=== PATIENT | female | born 1995 | race Caucasian/White ===

== ENCOUNTER 2020-03-20 17:51 | Inpatient (IN) | payer OTHER, SELFPAY ==
[2020-03-20] VITALS (18 sets, daily range): BP systolic 109–133; BP diastolic 70–105; PULSE 79–115; TEMP 36.4; BMI 30.2
[2020-03-20 18:28] LABS: Basophils Percent Auto 0.2 % (0.2-1.2); Eosinophils Percent Auto 0.4 % (0-4.4); Hematocrit 38.7 % (37.0-47.0); Hemoglobin 13.4 g/dL (12.0-15.0); Immature Granulocyte Absolute 0.08 K/mm3 (0.00-0.031); Immature Granulocyte Percent A 0.9 % (0-0.5); Lymphocytes Absolute Auto 1.48 K/mm3 (0.9-3.2); Lymphocytes Percent Auto 16.2 % (18.3-44.2); Mean Corpuscular HGB Conc 34.6 g/dl (32-36); Mean Corpuscular Volume 86.8 fl (80-100); Mean Platelet Volume 11.7 fl (7.4-10.4); Monocytes Absolute Auto 0.6 K/mm3 (0.1-0.6); Monocytes Percent Auto 6.5 % (2.6-8.5); Neutrophils Absolute Auto 6.9 K/mm3 (1.3-6.7); Neutrophils Percent Auto 75.8 % (45.5-73.1); Platelet Count Result 146 k/mm3 (150-375); Red Blood Count 4.46 M/mm3 (4.2-5.4); Red Cell Distribution Width 13.4 % (11.5-14.5); White Blood Count 9.1 K/mm3 (4.5-10.0)
[2020-03-20] MEDS: DINOPROSTONE 10 MG VAG INSERT VAGINAL (18:31)
[2020-03-20 18:41] LABS: Alanine Aminotransferase 14 U/L (4-35); Albumin Level 3.7 g/dL (3.5-5.1); Alkaline Phosphatase 176 U/L (38-126); Aspartate Amino Transferase 26 U/L (14-36); Bilirubin,Total 0.1 mg/dL (0.2-1.3); Blood Urea Nitrogen 13 mg/dL (7-17); Calcium 9.2 mg/dL (8.4-10.2); Carbon Dioxide 18 mmol/L (22-30); Chloride 106 mmol/L (98-107); Estimated Glomerular Filt Rate > 60; Glucose 113 mg/dL (65-105); Potassium 3.6 mmol/L (3.4-5.0); Sodium 134 mmol/L (137-145)
--- NOTE | 2020-03-20 19:24 | LDADM ---
This patient, Shayna Durham, was admitted to Labor/Delivery/Recovery 108 on 03/20/20 at 17:51. Plans for labor, pain management and were discussed with patient. Patient/family oriented to hospital policies and general routines including ID bracelet, bed and alarms, visiting hours, pain management, procedures, bathroom and other care routines, personal items, smoking policy, room service/diet and guest tray routines, infant security routines, and visiting hours. Patient/Family are encouraged to report perceived risks to care and to ask questions if they do not understand what they are told or what they should do. See OBIX for further documentation.
[2020-03-20] MEDS: ZOLPIDEM TARTRATE 5 MG TABLET PO (22:36)
[2020-03-21] VITALS (99 sets, daily range): BP systolic 83–153; BP diastolic 43–110; PULSE 70–133; TEMP 36.4–37.7; O2SAT 96–100
[2020-03-21] MEDS: MAGNESIUM HYDROXIDE SUSP 30 ML UDC PO (00:04)
[2020-03-21] MEDS: LACTATED RINGERS 1,000 ML 999 ML IV CONT ×4 (05:17→17:05)
--- NOTE | 2020-03-21 06:19 | WPDANESEPPF ---
Anes - Initial Pre Proc Eval Procedure: labor epidural Date/Time: 03/21/20 06:19 Surgeon: Hugo Deleon MD Pre Op Diagnosis: labor pain Pre Op Diagnosis: Induction of Labor Patient Data Age: 24 Gender: F Height: 1.57 m Weight: 75 kg Last Vital Signs Temp 36.8 C 03/21/20 06:12 Pulse 93 03/21/20 06:18 BP 121/74 03/21/20 06:18 Pulse Ox 100 03/21/20 06:15 Allergies Allergy/AdvReac Type Severity Reaction Status Date / Time No Known Allergies Allergy Verified 02/29/20 13:49 Home Medications Medication Instructions Recorded Confirmed Type PNV cmb#95-ferrous fumarate-FA 1 tablet PO DAILY 02/29/20 02/29/20 History [] escitalopram oxalate [Lexapro] 20 mg PO DAILY 02/29/20 02/29/20 History Laboratory Tests 03/20/20 03/20/20 03/20/20 18:19 18:19 18:19 WBC 9.1 K/mm3 K/mm3 (4.5-10.0) RBC 4.46 M/mm3 M/mm3 (4.2-5.4) Hgb 13.4 g/dL g/dL (12.0-15.0) Hct 38.7 % % (37.0-47.0) MCV 86.8 fl fl (80-100) MCH 30.0 pg pg (26-34) MCHC 34.6 g/dl g/dl (32-36) RDW 13.4 % % (11.5-14.5) Plt Count 146 k/mm3 L k/mm3 (150-375) MPV 11.7 fl H fl (7.4-10.4) Immature Gran % (Auto) 0.9 % H % (0-0.5) Neut % (Auto) 75.8 % H % (45.5-73.1) Lymph % (Auto) 16.2 % L % (18.3-44.2) [place] % (Auto) 6.5 % % (2.6-8.5) Eos % (Auto) 0.4 % % (0-4.4) Baso % (Auto) 0.2 % % (0.2-1.2) Lymph # (Auto) 1.48 K/mm3 K/mm3 (0.9-3.2) [place] # (Auto) 0.6 K/mm3 K/mm3 (0.1-0.6) Eos # (Auto) 0.0 K/mm3 K/mm3 (0-0.3) Baso # (Auto) 0.0 K/mm3 K/mm3 (0.0-0.1) Abs Immat Gran (auto) 0.08 K/mm3 H K/mm3 (0.00-0.031) Absolute Neuts (auto) 6.9 K/mm3 H K/mm3 (1.3-6.7) Absolute Nucleated RBC 0.0 K/mm3 K/mm3 (0.0-0.012) Nucleated RBC % 0.0 % % (0.0-0.2) Sodium Potassium Chloride Carbon Dioxide BUN Creatinine Estim Creat Clear Calc Estimated GFR Glucose Calcium Total Bilirubin AST ALT Alkaline Phosphatase Total Protein Albumin RPR Pending Blood Type O Positive Antibody Screen Negative 03/20/20 18:19 WBC RBC Hgb Hct MCV MCH MCHC RDW Plt Count MPV Immature Gran % (Auto) Neut % (Auto) Lymph % (Auto) [place] % (Auto) Eos % (Auto) Baso % (Auto) Lymph # (Auto) [place] # (Auto) Eos # (Auto) Baso # (Auto) Abs Immat Gran (auto) Absolute Neuts (auto) Absolute Nucleated RBC Nucleated RBC % Sodium 134 mmol/L L mmol/L (137-145) Potassium 3.6 mmol/L mmol/L (3.4-5.0) Chloride 106 mmol/L mmol/L (98-107) Carbon Dioxide 18 mmol/L L mmol/L (22-30) BUN 13 mg/dL mg/dL (7-17) Creatinine 0.70 mg/dL mg/dL (0.7-1.0) Estim Creat Clear Calc Not Reportable Estimated GFR > 60 (59 - ) Glucose 113 mg/dL H mg/dL (65-105) Calcium 9.2 mg/dL mg/dL (8.4-10.2) Total Bilirubin 0.1 mg/dL L mg/dL (0.2-1.3) AST 26 U/L U/L (14-36) ALT 14 U/L U/L (4-35) Alkaline Phosphatase 176 U/L H U/L (38-126) Total Protein 7.0 g/dL g/dL (6.3-8.2) Albumin 3.7 g/dL g/dL (3.5-5.1) RPR Blood Type Antibody Screen Patient hx anesthesia problems: none Family hx anesthesia problems: none [facility] Past Medical History Medical History (Updated 03/21/20 @ 06:20 by Bill Che CRNA) Anxiety GERD (gastroesophageal reflux disease) Family History Family History Father Hyperte
--- NOTE | 2020-03-21 06:46 | P.PNOB_ITS ---
OB - PN: Subj Subjective Date/time seen: 03/21/20 06:46 cx 8 cm/100/-2 arom mec stained fhts reassuring epidural working OB - PN: Obj Data Labs CBC & Chem 7: 03/20/20 18:19 03/20/20 18:19 Labs: Laboratory Results - last 24 hr 03/20/20 03/20/20 03/20/20 18:19 18:19 18:19 WBC 9.1 RBC 4.46 Hgb 13.4 Hct 38.7 MCV 86.8 MCH 30.0 MCHC 34.6 RDW 13.4 Plt Count 146 L MPV 11.7 H Immature Gran % (Auto) 0.9 H Neut % (Auto) 75.8 H Lymph % (Auto) 16.2 L [place] % (Auto) 6.5 Eos % (Auto) 0.4 Baso % (Auto) 0.2 Lymph # (Auto) 1.48 [place] # (Auto) 0.6 Eos # (Auto) 0.0 Baso # (Auto) 0.0 Abs Immat Gran (auto) 0.08 H Absolute Neuts (auto) 6.9 H Absolute Nucleated RBC 0.0 Nucleated RBC % 0.0 Sodium 134 L Potassium 3.6 Chloride 106 Carbon Dioxide 18 L BUN 13 Creatinine 0.70 Estim Creat Clear Calc Not Reportable Estimated GFR > 60 Glucose 113 H Calcium 9.2 Total Bilirubin 0.1 L AST 26 ALT 14 Alkaline Phosphatase 176 H Total Protein 7.0 Albumin 3.7 Blood Type O Positive Antibody Screen Negative OB - PN A/P Time Spent With Patient Time: Total time spent is greater than 50% in coordination of care (as documented) at patient's floor/unit and/or counseling patient:
--- NOTE | 2020-03-21 06:47 | PM.IMHP ---
H&P: HPI History of Present Illness Chief complaint: Induction of Labor Narrative: Shayna Durham is a 24 year old female 2 para 0010 whose last menstrual period was 06/10/2019, EDC is 03/24/2020, presents at 39 and half weeks gestation for induction of labor. She has a 7 week ultrasound confirming dates. has been uncomplicated. Risks and benefits of induction Review of Systems Review of Systems: All systems reviewed & are unremarkable except as noted in HPI and below PMFSH Past Medical History Medical History Anxiety GERD (gastroesophageal reflux disease) Family History Family History Father Hypertension Grandparent Hypertension Sibling Melanoma Mother Autoimmune disorder Social History Social History Smoking status: Never smoker Substance use: never Spiritual care concerns: No Meds Home Medications and Allergies Home Medications Medication Instructions Recorded Confirmed Type PNV cmb#95-ferrous fumarate-FA 1 tablet PO DAILY 02/29/20 02/29/20 History [] escitalopram oxalate [Lexapro] 20 mg PO DAILY 02/29/20 02/29/20 History Allergies Allergy/AdvReac Type Severity Reaction Status Date / Time No Known Allergies Allergy Verified 02/29/20 13:49 Vital Signs Vital Signs - 24 hr 03/20/20 18:04 03/20/20 18:14 03/20/20 19:21 Temperature 97.6 F Pulse Rate 115 H 104 H Blood Pressure 131/91 H 126/84 Pulse Oximetry 03/20/20 19:29 03/20/20 19:45 03/20/20 20:00 Temperature Pulse Rate 112 H 100 104 H Blood Pressure 125/89 126/88 125/86 Pulse Oximetry 03/20/20 20:15 03/20/20 20:30 03/20/20 20:45 Temperature Pulse Rate 92 94 88 Blood Pressure 130/89 128/71 126/81 Pulse Oximetry 03/20/20 21:00 03/20/20 21:15 03/20/20 21:30 Temperature Pulse Rate 79 99 88 Blood Pressure 129/89 122/70 129/89 Pulse Oximetry 03/20/20 21:45 03/20/20 22:05 03/20/20 22:06 Temperature 97.6 F Pulse Rate 92 86 Blood Pressure 130/105 H 119/77 Pulse Oximetry 03/20/20 22:15 03/20/20 22:29 03/20/20 23:00 Temperature Pulse Rate 84 82 87 Blood Pressure 109/76 120/93 H 133/85 Pulse Oximetry 03/21/20 00:05 03/21/20 00:08 03/21/20 02:00 Temperature 98 F Pulse Rate 105 H 96 Blood Pressure 116/73 110/68 Pulse Oximetry 03/21/20 03:59 03/21/20 06:00 03/21/20 06:05 Temperature Pulse Rate 83 99 Blood Pressure 130/100 H 143/83 H Pulse Oximetry 99 03/21/20 06:06 03/21/20 06:07 03/21/20 06:08 Temperature Pulse Rate 105 H 107 H 112 H Blood Pressure 142/97 H 134/90 143/92 H Pulse Oximetry 03/21/20 06:10 03/21/20 06:12 03/21/20 06:14 Temperature 98.3 F Pulse Rate 107 H 114 H 108 H Blood Pressure 134/82 139/79 125/74 Pulse Oximetry 100 03/21/20 06:15 03/21/20 06:16 03/21/20 06:18 Temperature Pulse Rate 101 H 93 Blood Pressure 124/78 121/74 Pulse Oximetry 100 03/21/20 06:20 03/21/20 06:22 03/21/20 06:24 Temperature Pulse Rate 101 H 104 H 107 H Blood Pressure 120/73 123/77 122/74 Pulse Oximetry 100 03/21/20 06:25 03/21/20 06:26 03/21/20 06:27 Temperature Pulse Rate 103 H 102 H Blood Pressure 114/64 118/69 Pulse Oximetry 100 03/21/20 06:30 03/21/20 06:32 03/21/20 06:34 Temperature Pulse Rate 98 103 H 103 H Blood Pressure 121/81 123/84 129/79 Pulse Oximetry 100 03/21/20 06:35 03/21/20 06:38 03/21/20 06:39 Temperature Pulse Rate 109 H 106 H 117 H Blood Pressure 124/81 105/67 116/78 Pulse Oximetry 100 03/21/20 06:40 03/21/20 06:42 03/21/20 06:44 Temperature Pulse Rate 133 H 121 H Blood Pressure 132/79 114/73 Pulse Oximetry 100 03/21/20 06:45 Temperature Pulse Rate 122 H Blood Pressure 113/67 Pulse Oximetry 100 Exam Const: Gen
[2020-03-21] MEDS: TERBUTALINE SULFATE 1 MG/ML VIAL 0.25 MG SUB-Q (07:00)
--- NOTE | 2020-03-21 07:03 | PM.OBPNVD ---
OB - PN: Subj Subjective Date/time seen: 03/21/20 07:03 sudden onset bradycardia responded to fse/o2/fluid/terb cx 9 cm fhts ok now observe closely OB - PN: Obj Data Labs CBC & Chem 7: 03/20/20 18:19 03/20/20 18:19 Labs: Laboratory Results - last 24 hr 03/20/20 03/20/20 03/20/20 18:19 18:19 18:19 WBC 9.1 RBC 4.46 Hgb 13.4 Hct 38.7 MCV 86.8 MCH 30.0 MCHC 34.6 RDW 13.4 Plt Count 146 L MPV 11.7 H Immature Gran % (Auto) 0.9 H Neut % (Auto) 75.8 H Lymph % (Auto) 16.2 L [place] % (Auto) 6.5 Eos % (Auto) 0.4 Baso % (Auto) 0.2 Lymph # (Auto) 1.48 [place] # (Auto) 0.6 Eos # (Auto) 0.0 Baso # (Auto) 0.0 Abs Immat Gran (auto) 0.08 H Absolute Neuts (auto) 6.9 H Absolute Nucleated RBC 0.0 Nucleated RBC % 0.0 Sodium 134 L Potassium 3.6 Chloride 106 Carbon Dioxide 18 L BUN 13 Creatinine 0.70 Estim Creat Clear Calc Not Reportable Estimated GFR > 60 Glucose 113 H Calcium 9.2 Total Bilirubin 0.1 L AST 26 ALT 14 Alkaline Phosphatase 176 H Total Protein 7.0 Albumin 3.7 Blood Type O Positive Antibody Screen Negative OB - PN A/P Time Spent With Patient Time: Total time spent is greater than 50% in coordination of care (as documented) at patient's floor/unit and/or counseling patient:
[2020-03-21] MEDS: OXYTOCIN 30 UNITS/NS 500 ML 30 UNITS/500 ML BAG IV CONT (08:47)
[2020-03-21 09:47] LABS: Rapid Plasma Reagin Non-Reactive (NonReactive)
--- NOTE | 2020-03-21 10:54 | P.PNOB_ITS ---
OB - PN: Subj Subjective Date/time seen: 03/21/20 10:54 cx 9cm by rn exam/-1 station iu in [facility] reassuring OB - PN: Obj Data Labs CBC & Chem 7: 03/20/20 18:19 03/20/20 18:19 Labs: Laboratory Results - last 24 hr 03/20/20 03/20/20 03/20/20 18:19 18:19 18:19 WBC 9.1 RBC 4.46 Hgb 13.4 Hct 38.7 MCV 86.8 MCH 30.0 MCHC 34.6 RDW 13.4 Plt Count 146 L MPV 11.7 H Immature Gran % (Auto) 0.9 H Neut % (Auto) 75.8 H Lymph % (Auto) 16.2 L [place] % (Auto) 6.5 Eos % (Auto) 0.4 Baso % (Auto) 0.2 Lymph # (Auto) 1.48 [place] # (Auto) 0.6 Eos # (Auto) 0.0 Baso # (Auto) 0.0 Abs Immat Gran (auto) 0.08 H Absolute Neuts (auto) 6.9 H Absolute Nucleated RBC 0.0 Nucleated RBC % 0.0 Sodium Potassium Chloride Carbon Dioxide BUN Creatinine Estim Creat Clear Calc Estimated GFR Glucose Calcium Total Bilirubin AST ALT Alkaline Phosphatase Total Protein Albumin RPR Non-reactive Blood Type O Positive Antibody Screen Negative 03/20/20 18:19 WBC RBC Hgb Hct MCV MCH MCHC RDW Plt Count MPV Immature Gran % (Auto) Neut % (Auto) Lymph % (Auto) [place] % (Auto) Eos % (Auto) Baso % (Auto) Lymph # (Auto) [place] # (Auto) Eos # (Auto) Baso # (Auto) Abs Immat Gran (auto) Absolute Neuts (auto) Absolute Nucleated RBC Nucleated RBC % Sodium 134 L Potassium 3.6 Chloride 106 Carbon Dioxide 18 L BUN 13 Creatinine 0.70 Estim Creat Clear Calc Not Reportable Estimated GFR > 60 Glucose 113 H Calcium 9.2 Total Bilirubin 0.1 L AST 26 ALT 14 Alkaline Phosphatase 176 H Total Protein 7.0 Albumin 3.7 RPR Blood Type Antibody Screen OB - PN A/P Time Spent With Patient Time: Total time spent is greater than 50% in coordination of care (as documented) at patient's floor/unit and/or counseling patient:
--- NOTE | 2020-03-21 18:19 | PM.OBPRVD ---
OB - Delivery Note Procedure Delivery date: 03/21/20 Procedure: mil Intrapartal events: None Induction method: AROM Delivery augmentation: pitocin Delivery monitor: external FHT Route of delivery: Episiotomy description: None Laceration description: Perineal - 2nd Degree Delivery repair: vicryl Specimen: No Estimated blood loss (mL): 250 Anesthesia type: Epidural Disposition: floor Baby Date of : 03/21/20 Time of : 18:00 Weeks of gestation at delivery: 39 Infant gender: Male Weight (pounds): 8 Weight (ounces): 0 presentation: vertex position: Right Occiput Anterior Placenta delivery description: Spontaneous cord vessel description: 3 Vessels score one minute: 5 score five minutes: 8
[2020-03-21] MEDS: OXYTOCIN 30 UNITS/NS 500 ML 30 UNITS/500 ML BAG 125 UNITS IV CONT (18:36)
[2020-03-21] MEDS: IBUPROFEN 600 MG TABLET PO (19:02)
[2020-03-21] MEDS: BENZOCAINE 20% AER SPR (*SP) 56 GM CAN 1 SPRAY TOPICAL (19:02)
[2020-03-21] MEDS: WITCH HAZEL 40 PADS 1 PAD TOPICAL (19:03)
[2020-03-21] MEDS: ACETAMINOPHEN 325 MG TABLET 650 MG PO (19:20)
[2020-03-22] MEDS: IBUPROFEN 600 MG TABLET PO (01:58)
[2020-03-22 04:57] LABS: Hematocrit 30.5 % (37.0-47.0); Hemoglobin 10.5 g/dL (12.0-15.0)
--- NOTE | 2020-03-22 06:48 | PM.OBPNVD ---
OB - PN: Subj Subjective Date/time seen: 03/22/20 06:48 Patient comments: no complaints and pain well controlled baby status: doing well and nursing well OB - PN: Obj Data Labs CBC & Chem 7: 03/22/20 04:42 03/20/20 18:19 Labs: Laboratory Results - last 24 hr 03/20/20 03/22/20 18:19 04:42 Hgb 10.5 L Hct 30.5 L RPR Non-reactive OB - PN A/P Plan day: 1 Plan: routine care Time Spent With Patient Time: Total time spent is greater than 50% in coordination of care (as documented) at patient's floor/unit and/or counseling patient: Time with patient: less than 15 minutes Review of Systems Review of Systems: All systems reviewed & are unremarkable except as noted in HPI and below Exam Const: General: no acute distress Eyes: General: appearance normal, both eyes and all related structures Neck: Neck: supple and no JVD Thyroid: thyroid normal Resp: Effort & Inspection: normal respiratory effort Auscultation: clear to auscultation bilaterally Cardio: Rate: regular rate Rhythm: regular rhythm GI: Inspection: non-distended GI Palp: Yes Soft to palpation, No Tenderness to palpation present (GI) and No Guarding due to palpation present (GI) Auscultation: normal bowel sounds : General: Yes bladder normal to palpation External Female Exam: normal external appearance Speculum Exam - Vagina: normal vaginal discharge and No vaginal bleeding Speculum Exam - Cervix: nontender Bimanual exam- vagina & uterus: bladder normal to palpation and No Cervical tenderness present OB/external & speculum: No vaginal bleeding Skin: General skin exam: no rashes or lesions noted Extrem: General: normal to inspection and no edema Psych: Mental Status: mental status grossly normal Affect: normal affect
--- NOTE | 2020-03-22 06:48 | PM.DS ---
DS: Admitting Diagnosis Admitting Diagnosis Admitting Diagnosis: term iup DS: Summary Time Spent with Patient Time attestation: Total time spent providing and/or coordinating discharge services: Exam Const: General: no acute distress Eyes: General: appearance normal, both eyes and all related structures Neck: Neck: supple and no JVD Thyroid: thyroid normal Resp: Effort & Inspection: normal respiratory effort Auscultation: clear to auscultation bilaterally Cardio: Rate: regular rate Rhythm: regular rhythm GI: Inspection: non-distended GI Palp: Yes Soft to palpation, No Tenderness to palpation present (GI) and No Guarding due to palpation present (GI) Auscultation: normal bowel sounds : General: Yes bladder normal to palpation External Female Exam: normal external appearance Speculum Exam - Vagina: normal vaginal discharge and No vaginal bleeding Speculum Exam - Cervix: nontender Bimanual exam- vagina & uterus: bladder normal to palpation and No Cervical tenderness present OB/external & speculum: No vaginal bleeding Skin: General skin exam: no rashes or lesions noted Extrem: General: normal to inspection and no edema Psych: Mental Status: mental status grossly normal Affect: normal affect DS: Data Data Completed and Pending Labs on day of discharge: Labs from last 24 hours 03/22/20 03/20/20 04:42 18:19 Hgb 10.5 L Hct 30.5 L RPR Non-reactive Discharge Plan Discharge Attending physician on discharge: Hugo Deleon Discharging Clinician: Hugo Deleon Patient Disposition: Home, Self-Care Activity: may shower, no straining and pelvic rest Diet: heart healthy Patient Instructions: Antibiotic Form Stand Alone Forms: General Discharge Information Follow-up/Referrals: Hugo Deleon MD [Physician] - Discharge Medications: Continued escitalopram oxalate [Lexapro] 20 mg Tablet 20 mg PO DAILY RF: 0 PNV cmb#95-ferrous fumarate-FA [] 28 mg iron- 800 mcg Tablet 1 tablet PO DAILY RF: 0 Date of admission: 03/20/20 17:51 Primary Care Provider: Ramiro Fry Admitting Provider: Hugo Deleon Attending physician on admission: Hugo Deleon
[2020-03-22 08:30] VITALS: RESP 18; TEMP 35.8
[2020-03-22 08:33] VITALS: BP 102/64; PULSE 77
--- NOTE | 2020-03-22 15:30 | PC.NURSE ---
Patient transferred to post room #282 ambulatory. Support person present. Oriented to unit, room, information board, rooming in, admission packet and security measures. Patient verbalizes understanding.
[2020-03-22 20:00] VITALS: BP 134/90; PULSE 88; RESP 18; TEMP 37.1; O2SAT 100
--- NOTE | 2020-03-23 06:46 | P.PNOB_ITS ---
OB - PN: Subj Subjective Date/time seen: 03/23/20 06:46 Patient comments: no complaints and pain well controlled baby status: doing well and nursing well OB - PN: Obj Data Labs CBC & Chem 7: 03/22/20 04:42 03/20/20 18:19 OB - PN A/P Time Spent With Patient Time: Total time spent is greater than 50% in coordination of care (as docume nted) at patient's floor/unit and/or counseling patient: Review of Systems Review of Systems: All systems reviewed & are unremarkable except as noted in HPI and below Exam Const: General: no acute distress Eyes: General: appearance normal, both eyes and all related structures Neck: Neck: supple and no JVD Thyroid: thyroid normal Resp: Effort & Inspection: normal respiratory effort Auscultation: clear to auscultation bilaterally Cardio: Rate: regular rate Rhythm: regular rhythm GI: Inspection: non-distended GI Palp: Yes Soft to palpation, No Tenderness to palpation present (GI) and No Guarding due to palpation present (GI) Auscultation: normal bowel sounds : General: Yes bladder normal to palpation External Female Exam: normal external appearance Speculum Exam - Vagina: normal vaginal discharge and No vaginal bleeding Speculum Exam - Cervix: nontender Bimanual exam- vagina & uterus: bladder normal to palpation and No Cervical tenderness present OB/external & speculum: No vaginal bleeding Skin: General skin exam: no rashes or lesions noted Extrem: General: normal to inspection and no edema Psych: Mental Status: mental status grossly normal Affect: normal affect
--- NOTE | 2020-03-23 07:00 | PC.NURSE ---
PT introductions made and plan of care discussed per post , pain management, breast feeding, daily care and pending discharge to home. PT verbalized understanding of such care.
[2020-03-23 08:10] VITALS: BP 127/73; PULSE 67; RESP 18; TEMP 37.1; O2SAT 99
[2020-03-23 09:30] VITALS: PULSE 67; RESP 18; O2SAT 99
--- NOTE | 2020-03-23 10:30 | PC.NURSE ---
Observed mother is able to independently latch with appropriate positioning/alignment. She denies any nipple discomfort, is feeding as required and waking infant to feed if needed. has had 8 effective feedings in the past 24 hours, and is currently meeting outcomes for weight, output, jaundice and feeding frequencies. Mother states she feels confident to continue effective at home. Reviewed transition to breast milk, signs of adequate intake, and engorgement/relief. Instructed to call ICP if intake/output less than required. Reviewed regular medications mother is taking. Information provided per Jessa. Reviewed community resources on the [facility] website and in the Mom/Baby guide. Information on outpatient services provided. Mother has no further questions at this time.
[2020-03-23] MEDS: DOCUSATE SODIUM 100 MG CAPSULE PO (10:37)
[2020-03-23] MEDS: LANOLIN (LANSINOH) 7.5 GM CREAM 1 APPLIC TOPICAL (10:37)
--- NOTE | 2020-03-23 12:00 | PC.NURSE ---
Patient viewed the discharge video Mother & Baby Care, The First Two Weeks . Patient was given the opportunity and encouraged to ask questions. Patient verbalized understanding of information shared and has been given the mother/baby guide for home reference.
--- NOTE | 2020-03-23 14:30 | PC.NURSE ---
PT received discharge instructions per protocol and verbalized understanding of such care.
[2020-03-23] MEDS: MEASLES,MUMPS,RUBELLA VACCINE 0.5 ML VIAL SUB-Q (14:33)
--- NOTE | 2020-03-23 15:19 | PC.NURSE ---
PT discharged to home ambulatory accompanied by spouse and to waiting car. Follow up appts confirmed
[2020-03-24 08:35] VITALS: BP 129/87; PULSE 84; RESP 20; TEMP 36.8; O2SAT 98
== END 2020-03-23 15:19 | disposition home or self-care (01) | DRG 807 ==
LOC: ANHLDR 03-21 13:53 → ANHNUR1 03-21 21:49 → ANHOBPP 03-21 22:23 → ANHOB2 03-22 15:43
PROVIDERS: Admitting Provider Obstetrics & Gynecology; PCP Internal Medicine; Visit Provider Obstetrics & Gynecology
DX: O13.4 Gestational [pregnancy-induced] hypertension without significant proteinuria, complicating childbirth (principal); Z37.0 Single live birth; Z3A.39 39 weeks gestation of pregnancy; O70.1 Second degree perineal laceration during delivery; O99.62 Diseases of the digestive system complicating childbirth; K21.9 Gastro-esophageal reflux disease without esophagitis; O99.284 Endocrine, nutritional and metabolic diseases complicating childbirth; E06.3 Autoimmune thyroiditis
CPT/HCPCS: 36415; 80053; 85014; 85018; 85025; 86592; 86850; 86900; 86901; 90710; A9270; J2590; J2795; J3010; J3105; J7120

== ENCOUNTER 2021-10-30 04:51 | Inpatient (IN) | payer OTHER, SELFPAY ==
[2021-10-30] VITALS (62 sets, daily range): BP systolic 88–134; BP diastolic 58–98; PULSE 59–103; RESP 12–18; TEMP 36.6–37.1; O2SAT 98–100; BMI 29.3
--- NOTE | 2021-10-30 05:17 | LDADM ---
This patient, Shayna Durham, was admitted to Labor/Delivery/Recovery 105 on 10/30/21 at 04:51. Plans for labor, pain management and were discussed with patient. Patient/family oriented to hospital policies and general routines including ID bracelet, bed and alarms, visiting hours, pain management, procedures, bathroom and other care routines, personal items, smoking policy, room service/diet and guest tray routines, infant security routines, and visiting hours. Patient/Family are encouraged to report perceived risks to care and to ask questions if they do not understand what they are told or what they should do. See OBIX for further documentation.
[2021-10-30 05:28] LABS: Basophils Percent Auto 0.3 % (0.2-1.2); Eosinophils Absolute Auto 0.1 K/mm3 (0-0.3); Eosinophils Percent Auto 0.9 % (0-4.4); Hematocrit 38.6 % (37.0-47.0); Immature Granulocyte Absolute 0.07 K/mm3 (0.00-0.031); Immature Granulocyte Percent A 0.7 % (0-0.5); Lymphocytes Absolute Auto 3.44 K/mm3 (0.9-3.2); Mean Corpuscular HGB Conc 33.7 g/dl (32-36); Mean Corpuscular Hemoglobin 29.1 pg (26-34); Mean Corpuscular Volume 86.5 fl (80-100); Mean Platelet Volume 10.8 fl (7.4-10.4); Monocytes Absolute Auto 0.7 K/mm3 (0.1-0.6); Monocytes Percent Auto 7.2 % (2.6-8.5); Neutrophils Absolute Auto 5.5 K/mm3 (1.3-6.7); Neutrophils Percent Auto 55.9 % (45.5-73.1); Platelet Count Result 173 k/mm3 (150-375); Red Blood Count 4.46 M/mm3 (4.2-5.4); Red Cell Distribution Width 13.2 % (11.5-14.5); White Blood Count 9.8 K/mm3 (4.5-10.0)
[2021-10-30] MEDS: LACTATED RINGERS 1,000 ML 125 ML IV CONT ×2 (05:32→08:05)
[2021-10-30] MEDS: OXYTOCIN 30 UNITS/NS 500 ML 30 UNITS/500 ML BAG IV CONT (05:33)
[2021-10-30 05:52] LABS: Alanine Aminotransferase 11 U/L (4-35); Albumin Level 3.7 g/dL (3.5-5.1); Alkaline Phosphatase 141 U/L (38-126); Anion Gap 4 mmol/L (8-16); Aspartate Amino Transferase 25 U/L (14-36); Bilirubin,Total 0.3 mg/dL (0.2-1.3); Blood Urea Nitrogen 13 mg/dL (7-17); Calcium 9.5 mg/dL (8.4-10.2); Carbon Dioxide 21 mmol/L (22-30); Chloride 107 mmol/L (98-107); Estimated CRCL calculation 113 ml/min; Estimated Glomerular Filt Rate > 60; Glucose 89 mg/dL (65-110); Sodium 132 mmol/L (137-145)
--- NOTE | 2021-10-30 07:24 | PM.IMHP ---
H&P: HPI History of Present Illness Date/Time: 10/30/21 07:24 This is a 26-year-old 2 para 1 whose last menstrual period was 01/11/2021, EDC is 11/08/2021, confirmed by 7 week ultrasound presents at term for induction of labor. Cervix is favorable and her L blood pressures have been elevated over the last 3 visits. PIH labs were drawn and are normal Chief Complaint: 38 and 5 7th weeks gestation with elevated blood pressures Review of Systems Review of Systems: All systems reviewed & are unremarkable except as noted in HPI and below PMFSH Past Medical History Medical History Anxiety Anxiety BMI 26.0-26.9,adult Encounter for preventive health examination GERD (gastroesophageal reflux disease) On care home drug therapy Family History Family History Father Hypertension Grandparent Hypertension Sibling Melanoma Mother Autoimmune disorder Social History Social History Smoking status: Never smoker Second hand tobacco smoke exposure: No Substance use: never Gender identity (if verbalized by the patient): Female Spiritual care concerns: No Meds Home Medications and Allergies Home Medications Medication Instructions Recorded Confirmed Type multivitamin 1 tablet PO DAILY 11/29/20 10/08/21 History escitalopram oxalate 20 mg tablet See Rx Instructions .ROUTE 06/11/21 10/08/21 Rx .COMPLEX #90 tablet levothyroxine 88 mcg PO DAILY 10/08/21 10/08/21 History Allergies Allergy/AdvReac Type Severity Reaction Status Date / Time No Known Allergies Allergy Verified 02/16/21 09:10 Vital Signs Vital Signs - 24 hr 10/30/21 05:29 10/30/21 05:30 10/30/21 05:45 Pulse Rate 78 84 78 Blood Pressure 127/91 H 119/91 H 123/86 10/30/21 06:00 10/30/21 06:15 10/30/21 06:30 Pulse Rate 75 95 81 Blood Pressure 125/86 122/90 121/88 10/30/21 06:45 10/30/21 07:00 10/30/21 07:16 Pulse Rate 82 85 73 Blood Pressure 117/86 123/89 127/80 Exam Const: General: no acute distress Eyes: General: appearance normal, both eyes and all related structures Neck: Neck: supple and no JVD Thyroid: thyroid normal Resp: Effort & Inspection: normal respiratory effort Auscultation: clear to auscultation bilaterally Cardio: Rate: regular rate Rhythm: regular rhythm GI: Inspection: non-distended GI Palp: Yes Soft to palpation, No Tenderness to palpation present (GI) and No Guarding due to palpation present (GI) Auscultation: normal bowel sounds : General: Yes bladder normal to palpation External Female Exam: normal external appearance Speculum Exam - Vagina: normal vaginal discharge and No vaginal bleeding Speculum Exam - Cervix: normal appearance of the cervix ( cervix /. AROM clear. FHTs were reassuring) and nontender Bimanual exam- vagina & uterus: bladder normal to palpation and No Cervical tenderness present OB/external & speculum: No vaginal bleeding Skin: General skin exam: no rashes or lesions noted Extrem: General: normal to inspection and no edema Psych: Mental Status: mental status grossly normal Affect: normal affect H&P: Results Labs Labs: Short CBC 10/30/21 Range/Units 05:13 WBC 9.8 (4.5-10.0) K/mm3 Hgb 13.0 (12.0-15.0) g/dL Hct 38.6 (37.0-47.0) % Plt Count 173 (150-375) k/mm3 BMP 10/30/21 05:13 Sodium 132 L Potassium 4.0 Chloride 107 Carbon Dioxide 21 L BUN 13 Creatinine 0.60 L Glucose 89 Calcium 9.5 Liver Function 10/30/21 Range/Units 05:13 Total Bilirubin 0.3 (0.2-1.3) mg/dL AST 25 (14-36) U/L ALT 11 (4-35) U/L Alkaline Phosphatase 141 H (38-126) U/L Albumin 3.7 (3.5-5.1) g/dL Assessment and Plan Additional Plan impression: 38 weekweeks gestation with elevated blood pressures Plan: Medical term labor. [facility] labs we
--- NOTE | 2021-10-30 08:37 | WPDANESEPPF ---
Anes - Initial Pre Proc Eval Date/Time: 10/30/21 08:37 Surgeon: Hugo Deleon MD Pre Op Diagnosis: IOL Patient Data Age: 26 Gender: F Height: 1.57 m Weight: 72.72 kg Last Vital Signs Pulse 87 10/30/21 08:36 BP 107/66 10/30/21 08:36 Pulse Ox 98 10/30/21 08:18 Allergies Allergy/AdvReac Type Severity Reaction Status Date / Time No Known Allergies Allergy Verified 02/16/21 09:10 Home Medications Medication Instructions Recorded Confirmed Type multivitamin 1 tablet PO DAILY 11/29/20 10/08/21 History escitalopram oxalate 20 mg tablet See Rx Instructions .ROUTE 06/11/21 10/08/21 Rx .COMPLEX #90 tablet levothyroxine 88 mcg PO DAILY 10/08/21 10/08/21 History Laboratory Tests 10/30/21 10/30/21 10/30/21 05:13 05:13 05:13 WBC 9.8 K/mm3 K/mm3 (4.5-10.0) RBC 4.46 M/mm3 M/mm3 (4.2-5.4) Hgb 13.0 g/dL g/dL (12.0-15.0) Hct 38.6 % % (37.0-47.0) MCV 86.5 fl fl (80-100) MCH 29.1 pg pg (26-34) MCHC 33.7 g/dl g/dl (32-36) RDW 13.2 % % (11.5-14.5) Plt Count 173 k/mm3 k/mm3 (150-375) MPV 10.8 fl H fl (7.4-10.4) Immature Gran % (Auto) 0.7 % H % (0-0.5) Neut % (Auto) 55.9 % % (45.5-73.1) Lymph % (Auto) 35.0 % % (18.3-44.2) [place] % (Auto) 7.2 % % (2.6-8.5) Eos % (Auto) 0.9 % % (0-4.4) Baso % (Auto) 0.3 % % (0.2-1.2) Lymph # (Auto) 3.44 K/mm3 H K/mm3 (0.9-3.2) [place] # (Auto) 0.7 K/mm3 H K/mm3 (0.1-0.6) Eos # (Auto) 0.1 K/mm3 K/mm3 (0-0.3) Baso # (Auto) 0.0 K/mm3 K/mm3 (0.0-0.1) Abs Immat Gran (auto) 0.07 K/mm3 H K/mm3 (0.00-0.031) Absolute Neuts (auto) 5.5 K/mm3 K/mm3 (1.3-6.7) Absolute Nucleated RBC 0.0 K/mm3 K/mm3 (0.0-0.012) Nucleated RBC % 0.0 % % (0.0-0.2) Sodium Potassium Chloride Carbon Dioxide Anion Gap BUN Creatinine Estim Creat Clear Calc Estimated GFR Glucose Uric Acid 5.0 mg/dL mg/dL (2.5-7.5) Calcium Total Bilirubin AST ALT Alkaline Phosphatase Total Protein Albumin RPR Pending Blood Type Antibody Screen 10/30/21 10/30/21 05:13 05:13 WBC RBC Hgb Hct MCV MCH MCHC RDW Plt Count MPV Immature Gran % (Auto) Neut % (Auto) Lymph % (Auto) [place] % (Auto) Eos % (Auto) Baso % (Auto) Lymph # (Auto) [place] # (Auto) Eos # (Auto) Baso # (Auto) Abs Immat Gran (auto) Absolute Neuts (auto) Absolute Nucleated RBC Nucleated RBC % Sodium 132 mmol/L L mmol/L (137-145) Potassium 4.0 mmol/L mmol/L (3.4-5.0) Chloride 107 mmol/L mmol/L (98-107) Carbon Dioxide 21 mmol/L L mmol/L (22-30) Anion Gap 4 mmol/L L mmol/L (8-16) BUN 13 mg/dL mg/dL (7-17) Creatinine 0.60 mg/dL L mg/dL (0.7-1.0) Estim Creat Clear Calc 113 ml/min ml/min Estimated GFR > 60 (59 - ) Glucose 89 mg/dL mg/dL (65-110) Uric Acid Calcium 9.5 mg/dL mg/dL (8.4-10.2) Total Bilirubin 0.3 mg/dL mg/dL (0.2-1.3) AST 25 U/L U/L (14-36) ALT 11 U/L U/L (4-35) Alkaline Phosphatase 141 U/L H U/L (38-126) Total Protein 7.0 g/dL g/dL (6.3-8.2) Albumin 3.7 g/dL g/dL (3.5-5.1) RPR Blood Type O Positive Antibody Screen Negative Patient hx anesthesia problems: none Family hx anesthesia problems: none Results Review: All
[2021-10-30] MEDS: SODIUM CHLORIDE 0.9% IV 300 ML 600 ML I-UTERINE (11:44)
--- NOTE | 2021-10-30 12:12 | PM.OBPNLAB ---
Pain Control Date/time seen: 10/30/21 12:12 cx 6 fhts ok w resolved varibles with iupc/amnioinfusion
--- NOTE | 2021-10-30 14:06 | PM.OBPRVD ---
OB - Delivery Note Procedure Delivery date: 10/30/21 Procedure: mil events: Induced HTN Intrapartal events: None Induction method: AROM Delivery augmentation: pitocin Delivery monitor: external FHT and internal uterine Route of delivery: Episiotomy description: None Laceration Description: Perineal - 2nd Degree Delivery repair: vicryl Specimen: No Quantitative Blood Loss (ml): 59 Anesthesia type: Epidural Disposition: floor Baby Date of : 10/30/21 Time of : 13:53 Weeks of gestation at delivery: 38 gender: Female presentation: vertex position: Right Occiput Anterior Placenta delivery description: Spontaneous cord vessel description: 3 Vessels, Nuchal Cord and Loose
[2021-10-30] MEDS: OXYTOCIN 30 UNITS/NS 500 ML 30 UNITS/500 ML BAG 125 UNITS IV CONT (14:31)
[2021-10-30 16:49] LABS: Rapid Plasma Reagin Non-Reactive (NonReactive)
[2021-10-30] MEDS: diphenhydrAMINE HCl CAP 25 MG CAPSULE PO (17:19)
[2021-10-30] MEDS: WITCH HAZEL 40 PADS 1 PAD TOPICAL (17:20)
[2021-10-30] MEDS: BENZOCAINE 20% AER SPR (*SP) 56 GM CAN 1 SPRAY TOPICAL (17:20)
--- NOTE | 2021-10-30 18:19 | OBPPTRN ---
1745 Patient transferred to post room #278 via W/C. Support person present. Oriented to unit, room, information board, rooming in, admission packet and security measures. Patient verbalizes understanding.
[2021-10-31] VITALS: BP 114/72; PULSE 74; RESP 18; TEMP 36.6; O2SAT 97
[2021-10-31] MEDS: IBUPROFEN 600 MG TABLET PO ×3 (00:03→19:20)
[2021-10-31 04:19] VITALS: BP 109/70; PULSE 60; RESP 18; TEMP 36.4; O2SAT 99
[2021-10-31 05:41] LABS: Hematocrit 34.1 % (37.0-47.0); Hemoglobin 11.3 g/dL (12.0-15.0)
--- NOTE | 2021-10-31 06:24 | PM.OBPNVD ---
OB - PN: Subj Subjective Date/time seen: 10/31/21 06:24 Patient comments: no complaints and pain well controlled baby status: doing well OB - PN: Obj Data Labs CBC & Chem 7: 10/31/21 04:07 10/30/21 05:13 Labs: Laboratory Results - last 24 hr 10/30/21 10/30/21 10/31/21 05:13 05:13 04:07 Hgb 11.3 L Hct 34.1 L RPR Non-reactive Blood Type O Positive Antibody Screen Negative OB - PN A/P Plan day: 1 Plan: routine care Time Spent With Patient Time: Total time spent is greater than 50% in coordination of care (as documented) at patient's floor/unit and/or counseling patient: Time with patient: less than 15 minutes Review of Systems Review of Systems: All systems reviewed & are unremarkable except as noted in HPI and below Exam Const: General: no acute distress Eyes: General: appearance normal, both eyes and all related structures Neck: Neck: supple and no JVD Thyroid: thyroid normal Resp: Effort & Inspection: normal respiratory effort Auscultation: clear to auscultation bilaterally Cardio: Rate: regular rate Rhythm: regular rhythm GI: Inspection: non-distended GI Palp: Yes Soft to palpation, No Tenderness to palpation present (GI) and No Guarding due to palpation present (GI) Auscultation: normal bowel sounds : General: Yes bladder normal to palpation External Female Exam: normal external appearance Speculum Exam - Vagina: normal vaginal discharge and No vaginal bleeding Speculum Exam - Cervix: nontender Bimanual exam- vagina & uterus: bladder normal to palpation and No Cervical tenderness present OB/external & speculum: No vaginal bleeding Skin: General skin exam: no rashes or lesions noted Extrem: General: normal to inspection and no edema Psych: Mental Status: mental status grossly normal Affect: normal affect
--- NOTE | 2021-10-31 07:33 | WPDANLDPN2 ---
Anes-Prog Note L&D Date/Time: 10/31/21 07:33 Comfortable throughout: labor and delivery Neuraxial method: epidural Epidural/Spinal procedure site: clean & non-tender Neuro status: Neuro function grossly intact. Cardiovascular status: normal Respiratory status: normal Airway patency: baseline Mental status: baseline Post-Op hydration status: normal Vital Signs: Last Vital Signs Temp 97.6 F 10/31/21 04:19 Pulse 60 10/31/21 04:19 Resp 18 10/31/21 04:19 BP 109/70 10/31/21 04:19 Pulse Ox 99 10/31/21 04:19 Pain score (VAS): 0 I/O: Intake & Output 10/30/21 10/30/21 10/31/21 15:59 23:59 07:59 Intake Total 1000 300 200 Output Total 200 200 Balance 1000 100 0 Post-procedural complaints: none Patient feedback: Patient satisfied with anesthetic care.
[2021-10-31 08:40] VITALS: BP 123/87; PULSE 60; RESP 16; TEMP 36.6; O2SAT 100
[2021-10-31] MEDS: DOCUSATE SODIUM 100 MG CAPSULE PO (09:55)
[2021-10-31] MEDS: MULTIVIT/MIN/PREN/FOL AC/IRON TABLET 1 TAB PO (09:55)
[2021-10-31 12:05] VITALS: BP 114/74; PULSE 92; RESP 16; TEMP 36.6; O2SAT 99
--- NOTE | 2021-10-31 13:01 | PC.NURSE ---
0700 - Primary RN reported baby was undress to the diaper and placed skin to skin. Mother was instructed to call for assistance or if there is discomfort with latching. 0900 - Mom is in the bathroom. Introductions were made with dad and mother. Parents voiced understanding to undress infant to the diaper and place skin to skin after the restroom. Feeding cues reviewed, then when they are visualized the parents will call for assistance or if there is no latch. 0950 - Reviewed positioning/alignment with the visuals in the mom and baby guide. Encouraged mother with infant right breast in football position using nipple to nose with asymmetrical 140-degree latch. She denies any nipple discomfort. Reviewed there is to be no pain with , how to detach from the breast, visuals to watch for to confirm effective with rocking motion and suck/swallow ratio. Nipple tenderness is relieved with improving positioning and effective latching. Use of warm, wet compress to nipples and air dry for improved comfort. Infant was able to maintain effective latch. Mother has verbalized understanding watching for feeding cues for responsive feeding or how to stimulate to initiate from the start of the last feeding. Parents voiced understanding to feed infant when she sees feeding cues, 8-12 times in 24 hours approximately every 2-3 hours from the start of the last feeding or she has discomfort with nursing. Reported to primary RN.
--- NOTE | 2021-10-31 13:11 | PC.NURSE ---
0839 -0499 - Introductions were made and mother led the discussion of her desires and plans to feeding her baby. Mother is working with baby through low blood sugar medical intervention with formula feedings. At this time mother is not putting infant to breast and is pumping to stimulate milk production. Reviewed handwashing to prevent infection before and after taking care of her baby. Reviewed information regarding pump care, hand washing, nipple care and pumping 8 times in 24 hours (1-2 at night) for 10-15 minutes. Collection and storage of breastmilk per mom and baby guide. Encouraged mom to place skin to skin, breast massage and use hand expression and/or a breast pump in a relaxing atmosphere. Reviewed recording pumping schedule on the feeding sheet. Referred to the visual handout along with the mom and baby guide as a resource and when to call a provider. Mother voiced calling for assistance if she decides to breastfeed. Reported to primary RN.
[2021-10-31 19:15] VITALS: BP 125/80; PULSE 84; RESP 16; TEMP 36.8; O2SAT 99
--- NOTE | 2021-11-01 05:46 | PM.DS ---
DS: Admitting Diagnosis Discharge Date 11/01/2021 Admitting Diagnosis term for induction of labor DS: Summary Hospital Course Hospital Course: patient was admitted for induction of labor which was successful. Postop course was unremarkable. She remained afebrile. She was up, voiding without difficulty, ambulating, generally without complaints Time Spent with Patient Time attestation: Total time spent providing and/or coordinating discharge services: Exam Const: General: no acute distress Eyes: General: appearance normal, both eyes and all related structures Neck: Neck: supple and no JVD Thyroid: thyroid normal Resp: Effort & Inspection: normal respiratory effort Auscultation: clear to auscultation bilaterally Cardio: Rate: regular rate Rhythm: regular rhythm GI: Inspection: non-distended GI Palp: Yes Soft to palpation, No Tenderness to palpation present (GI) and No Guarding due to palpation present (GI) Auscultation: normal bowel sounds : General: Yes bladder normal to palpation External Female Exam: normal external appearance Speculum Exam - Vagina: normal vaginal discharge and No vaginal bleeding Speculum Exam - Cervix: nontender Bimanual exam- vagina & uterus: bladder normal to palpation and No Cervical tenderness present OB/external & speculum: No vaginal bleeding Skin: General skin exam: no rashes or lesions noted Extrem: General: normal to inspection and no edema Psych: Mental Status: mental status grossly normal Affect: normal affect Discharge Plan Discharge Attending physician on discharge: Hugo Deleon Discharging Clinician: Hugo Deleon Patient Disposition: Home, Self-Care Activity: may shower, no straining and pelvic rest Diet: heart healthy Wound Care Instructions: follow printed instructions Patient Instructions: Antibiotic Form Stand Alone Forms: General Discharge Information Follow-up/Referrals: Hugo Deleon MD [Physician] - Discharge Medications: Continued multivitamin Tablet 1 tablet PO DAILY RF: 0 levothyroxine 88 mcg Tablet 88 mcg PO DAILY RF: 0 escitalopram oxalate 20 mg tablet See Rx Instructions .ROUTE .COMPLEX Qty: 90 RF: 3 Date of admission: 10/30/21 04:51 Primary Care Provider: Ramiro Fry Admitting Provider: Hugo Deleon Attending physician on admission: Hugo Deleon Condition: Stable
--- NOTE | 2021-11-01 05:48 | PM.OBPNVD ---
OB - PN: Subj Subjective Date/time seen: 11/01/21 05:48 Patient comments: no complaints and pain well controlled baby status: doing well and nursing well OB - PN: Obj Data Labs CBC & Chem 7: 10/31/21 04:07 10/30/21 05:13 OB - PN A/P Plan day: 2 Plan: routine care, discharge home and follow up 6 weeks Time Spent With Patient Time: Total time spent is greater than 50% in coordination of care (as documented) at patient's floor/unit and/or counseling patient: Time with patient: less than 15 minutes Review of Systems Review of Systems: All systems reviewed & are unremarkable except as noted in HPI and below Exam Const: General: no acute distress Eyes: General: appearance normal, both eyes and all related structures Neck: Neck: supple and no JVD Thyroid: thyroid normal Resp: Effort & Inspection: normal respiratory effort Auscultation: clear to auscultation bilaterally Cardio: Rate: regular rate Rhythm: regular rhythm GI: Inspection: non-distended GI Palp: Yes Soft to palpation, No Tenderness to palpation present (GI) and No Guarding due to palpation present (GI) Auscultation: normal bowel sounds : General: Yes bladder normal to palpation External Female Exam: normal external appearance Speculum Exam - Vagina: normal vaginal discharge and No vaginal bleeding Speculum Exam - Cervix: nontender Bimanual exam- vagina & uterus: bladder normal to palpation and No Cervical tenderness present OB/external & speculum: No vaginal bleeding Skin: General skin exam: no rashes or lesions noted Extrem: General: normal to inspection and no edema Psych: Mental Status: mental status grossly normal Affect: normal affect
[2021-11-01 07:45] VITALS: BP 118/89; PULSE 79; RESP 16; TEMP 36.3; O2SAT 100
--- NOTE | 2021-11-01 09:13 | PC.NURSE ---
0800 - Consulted with patient by request due to patient complains of sore nipples. Reviewed feeding cues, frequencies, duration of feedings, feeding elimination flow sheet, and signs of adequate intake. Demonstrated stimulation techniques to wake infant for feeding. Mother demonstrated to left breast using football position. Mother encouraged to wait for big open gape before placing breast into infants mouth. Reviewed positioning/alignment, holding breast and asymmetrical latch on. was unable to latch correctly. Reviewed signs of a correct latch with additional method of a visual handout. Infant was unable to maintain latch without discomfort to mother. Nipple care reviewed. Infant crying. Encouraged mother to use skin to skin, attempt and supplement infant if no latch. Mother will use the pump to stimulate milk production. Instructed mother to call out for RN assistance if she is unable to latch infant for feeding or she has discomfort with nursing. Mother states she nursed infant on the nipple at last . Instructed feeding should be initiated three hours from start of last feeding or if feeding cues are noted before. Mother voiced understanding of information shared.
[2021-11-01] MEDS: MULTIVIT/MIN/PREN/FOL AC/IRON TABLET 1 TAB PO (11:32)
[2021-11-03 09:01] VITALS: BP 133/84; PULSE 83; RESP 16; TEMP 36.6; O2SAT 100
== END 2021-11-01 16:30 | disposition home or self-care (01) | DRG 807 ==
LOC: ANHLDR 04:55 → ANHOB2 18:04
PROVIDERS: Admitting Provider Obstetrics & Gynecology; PCP Internal Medicine; Visit Provider Obstetrics & Gynecology
DX: O13.4 Gestational [pregnancy-induced] hypertension without significant proteinuria, complicating childbirth (principal); Z37.0 Single live birth; O70.1 Second degree perineal laceration during delivery; O69.81X0 Labor and delivery complicated by cord around neck, without compression, not applicable or unspecified; Z3A.38 38 weeks gestation of pregnancy
CPT/HCPCS: 36415; 80053; 84550; 85014; 85018; 85025; 86592; 86850; 86900; 86901; A9270; J2590; J2795; J7030; J7120